=== PATIENT | female | born 1950 | race Caucasian/White ===

== ENCOUNTER 2019-03-14 21:53 | Inpatient (IN) | payer OTHER ==
[~2019-03-14] VITALS: Ht 177.8 cm; Wt 126.6 kg
[~2019-03-14 21:53] MED LIST: AUGMENTIN 875-1 EACH PO; CHOLESTYRAMINE P4 GM PO; COREG CR80 MG PO; DEXILANT60 MG PO; FIBER GUMMIES2.5 GM PO; FISH OIL 1,0001 EAC1 PO; LOVASTAT40 PO; MATZIM LA360 MG PO; MELATONIN5 M1; NORCO 5-325 TA1 EACH PO; OMEGA-31000 M1; OMEPRAZOLE40 MG PO; PRADAXA150 MG PO; SLOW RELEASE I142 M1 PO; chlorthalidone PO; slow fe
[2019-03-14 22:00] VITALS: BP 140/81
[2019-03-14] MEDS ORDERED: ELIQUIS5 MG PO (22:07)
[2019-03-14] MEDS ORDERED: OMEPRAZOLE40 MG PO (22:09)
[2019-03-14] MEDS ORDERED: RANITIDINE 150150 M1 PO (22:11)
[2019-03-14] MEDS ORDERED: LINZESS290 MCG PO (22:11)
[2019-03-14] MEDS ORDERED: TRAZODONE HCL50 MG PO (22:11)
[2019-03-14] MEDS ORDERED: MELATONIN5 M1 PO (22:12)
[2019-03-14 22:32] LABS: ABSOLUTE BASOPHILS 0.1 thou/uL (0.0-0.2); ABSOLUTE EOSINOPHILS 0.1 thou/uL (0.0-0.7); ABSOLUTE LYMPHOCYTES 1.3 thou/uL (0.8-5.3); ABSOLUTE MONOCYTES 0.5 thou/uL (0.0-1.2); ABSOLUTE NEUTROPHILS 9.9 thou/uL (1.6-8.1); EOSINOPHILS 0.9 %; HEMATOCRIT 39.8 % (37.0-47.0); HEMOGLOBIN 13.9 gm/dL (12.0-15.0); LYMPHOCYTES 10.5 %; MCH 30.7 pg (26.0-34.0); MCHC 34.8 g/dL (28.0-37.0); MCV 88.3 fL (80.0-100.0); MONOCYTES 4.1 %; MPV 8.5 fl. (7.2-11.1); NUCLEATED RBCS 0 /100WBC; PLATELET COUNT* 222 thou/uL (150-400); POLYS 83.5 %; RBC 4.51 mil/uL (4.20-5.00); WBC 11.9 thou/uL (4.0-11.0)
[2019-03-14 22:41] LABS: CALCIUM 8.8 mg/dL (8.5-10.1); CREATININE 0.9 mg/dL (0.6-1.3)
[2019-03-14 22:43] LABS: POTASSIUM 2.7 mmol/L (3.5-5.1)
[2019-03-14 22:45] LABS: ALBUMIN 3.6 g/dL (3.4-5.0); MAGNESIUM 1.6 mg/dL (1.8-2.4); TOTAL BILIRUBIN 0.4 mg/dL (<0.1-1.0); TOTAL PROTEIN 7.4 g/dL (6.4-8.2)
[2019-03-14 23:07] LABS: URINE BILIRUBIN NEGATIVE (Negative); URINE BLOOD NEGATIVE (Negative); URINE CLARITY CLEAR; URINE COLOR YELLOW; URINE GLUCOSE-RANDOM NEGATIVE (Negative); URINE KETONES TRACE (Negative); URINE LEUKOCYTES-REFLEX NEGATIVE (Negative); URINE NITRITE-REFLEX NEGATIVE (Negative); URINE PROTEIN NEGATIVE (Negative); URINE SPECIFIC GRAVITY 1.015 (1.005-1.030); URINE UROBILINOGEN 0.2 E.U./dl (0.2-1.0)
[2019-03-15 02:21] VITALS: BP 110/56
[2019-03-15 02:30] VITALS: BP 123/72
[2019-03-15 07:59] LABS: ALBUMIN 3.3 g/dL (3.4-5.0); CALCIUM 8.5 mg/dL (8.5-10.1); CREATININE 0.9 mg/dL (0.6-1.3); POTASSIUM 3.1 mmol/L (3.5-5.1); TOTAL BILIRUBIN 0.6 mg/dL (<0.1-1.0); TOTAL PROTEIN 6.5 g/dL (6.4-8.2)
[2019-03-15 08:00] VITALS: BP 131/75
--- NOTE | 2019-03-15 11:36 | EKG ---
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1950 Requested By: Caroline Macdonald Order Number: [id number] MD: Brandin Feliz Measurements Intervals [place] Rate: 96 P: [place]: QRS: -27 QRSD: 120 T: 223 QT: 377 QTc: 477 Interpretive Statements Atrial fibrillation Nonspecific intraventricular conduction delay Nonspecific repol abnormality, diffuse leads ST depression V1-V3, suggest recording posterior leads Compared to ECG 07/27/2014 17:36:54 ST (T wave) deviation still present Electronically Signed On 03-15-2019 11:36:21 CDT by Brandin Feliz [email or web address] <ELECTRONICALLY SIGNED> By: Brandin Feliz MD, [facility] 03/15/19 1136 2257 2257 Brandin Feliz MD, [facility] /EPI
--- NOTE | 2019-03-15 11:40 | EKG ---
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
[2019-03-15 12:00] VITALS: BP 121/67
[2019-03-15 16:00] VITALS: BP 116/66
[2019-03-15 16:59] LABS: ANION GAP 6 mmol/L (7-16); BUN 9 mg/dL (7-18); CALCIUM 8.6 mg/dL (8.5-10.1); CHLORIDE 102 mmol/L (98-107); CO2 32 mmol/L (21-32); CREATININE 0.8 mg/dL (0.6-1.3); GLUCOSE 87 mg/dL (70-99); POTASSIUM 3.5 mmol/L (3.5-5.1); SODIUM 140 mmol/L (136-145); TROPONIN-I LEVEL <0.06 ng/mL (<0.06)
[2019-03-15 19:49] VITALS: BP 114/66
[2019-03-16] VITALS: BP 101/70
[2019-03-16 04:00] VITALS: BP 131/86
[2019-03-16 08:00] VITALS: BP 127/74
[2019-03-16 12:00] VITALS: BP 134/95
--- NOTE | 2019-03-16 12:30 | EKG ---
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1950 Requested By: Omi Wooten Order Number: [id number] Reading MD: Brandin Feliz Measurements Intervals [place] Rate: 73 P: [place]: QRS: 57 QRSD: 114 T: QT: 434 QTc: 479 Interpretive Statements Atrial fibrillation Borderline intraventricular conduction delay Low voltage, precordial leads Abnormal T, consider ischemia, anterior leads Compared to ECG 03/15/2019 01:52:12 Low QRS voltage now present Possible ischemia still present Electronically Signed On 03-16-2019 12:30:46 CDT by Brandin Feliz [email or web address] <ELECTRONICALLY SIGNED> By: Brandin Feliz MD, [facility] 03/16/19 1230 1113 1113 Brandin Feliz MD, [facility] /EPI
[2019-03-16 16:00] VITALS: BP 130/91
--- NOTE | 2019-03-16 16:08 | 2DMMODE ---
[place] [address] 2 D/M-MODE ECHOCARDIOGRAM Name: ELIEMORGAN Room: [address] [place] [facility] [id number] Admission: 03/15/19 Attend Phys: Shree Swain, Discharge: Date of : 52 Date of Service: 03/16/19 1607 Report #: [id number] THIS REPORT FOR: //name// APPROVED REPORT Study performed: 03/16/2019 15:02:35 EXAM: Comprehensive 2D, Doppler, and color-flow Echocardiogram Patient Location: In-Patient Room #: [facility] [place] [facility] [place] Status: routine BSA: 2.41 HR: 91 bpm BP: 134/95 mmHg Rhythm: Atrial Fibrillation Other Information Study Quality: Good Indications Chest Pain 2D Dimensions IVSd: 11.56 (7-11mm) LVOT Diam: 20.35 (18-24mm) LVDd: 47.60 mm PWd: 12.07 (7-11mm) Ascending Ao: 34.45 (22-36mm) LVDs: 37.28 (25-40mm) Aortic Root: 33.93 mm Volumes Left Atrial Volume (Systole) LA ESV Index: 52.20 mL/m2 Aortic Valve AoV Peak Ari.: 1.17 m/s AO Peak Gr.: 5.51 mmHg LVOT Max P.47 mmHg AO Mean Gr.: 2.88 mmHg LVOT Mean P.83 mmHg LVOT Max V: 0.93 m/s AO V2 VTI: 22.15 cm LVOT Mean V: 0.63 m/s DIAN (VTI): 2.88 cm2 LVOT V1 VTI: 19.60 cm TDI Medial E' Ari.: 0.14 m/s Lateral E' Ari.: 0.19 m/[place] [address] 2 D/M-MODE ECHOCARDIOGRAM Name: MORGAN DELGADILLO Room: [address] IN .R.#: [id number] Admission: 03/15/19 Attend Phys: Shree Swain, Discharge: Date of : 52 Date of Service: 03/16/19 1607 Report #: [id number] Pulmonary Valve PV Peak Ari.: 0.94 m/s PV Peak Gr.: 3.51 mmHg Tricuspid Valve RAP Estimate: 5.00 mmHg TR Peak Gr.: 25.19 mmHg RVSP: 30.00 mmHg PA Pressure: 30.00 mmHg Left Ventricle The left ventricle is normal size. There is normal LV segmental wall motion. Mild concentric left ventricular hypertrophy. Left ventricular systolic function is normal. The left ventricular ejection fraction is within the normal range. LVEF is 55-60%. This study is not technically sufficient to allow evaluation of the LV diastolic function due to atrial fibrillation. Right Ventricle The right ventricle is normal size. The right ventricular systolic function is normal. Atria Left atrium is severely dilated. Right atrium is dilated. Aortic Valve The Aortic valve is sclerotic. No aortic regurgitation is present. There is no aortic valvular stenosis. Mitral Valve There is mitral annular calcification. Mild mitral regurgitation. No evidence of mitral valve stenosis. Tricuspid Valve The tricuspid valve is normal in structure. Mild tricuspid regurgitation. estimated pa pressure 35 mm Hg Pulmonic Valve The pulmonary valve is normal in structure. Trace pulmonic regurgitation. Great Vessels The aortic root is normal in size. IVC is normal in size and collapses >50% with inspiration. Pericardium There is [place] [address] 2 D/M-MODE ECHOCARDIOGRAM Name: MORGAN DELGADILLO Room: [address] IN ..#: [id number] Admission: 03/15/19 Attend Phys: Shree Swain, Discharge: Date of : 52 Date of Service: 03/16/19 1607 Report #: [id number] <Conclusion> Mild concentric left ventricular hypertrophy. LVEF is 55-60%. Left atrium is severely dilated. Mild mitral regurgitation. Mild tricuspid regurgitation. estimated pa pressure 35 mm Hg <ELECTRONICALLY SIGNED> By: Brandin Feliz MD, [facility] 03/16/19 1607 1607 06 Brandin Feliz MD, [facility] /INF
[2019-03-16 20:20] VITALS: BP 143/87
[2019-03-17 00:28] VITALS: BP 148/88
[2019-03-17 05:12] LABS: ABSOLUTE EOSINOPHILS 0.2 thou/uL (0.0-0.7); ABSOLUTE LYMPHOCYTES 2.9 thou/uL (0.8-5.3); ABSOLUTE MONOCYTES 0.3 thou/uL (0.0-1.2); ABSOLUTE NEUTROPHILS 2.9 thou/uL (1.6-8.1); BASOPHILS 0.6 %; HEMOGLOBIN 14.1 gm/dL (12.0-15.0); LYMPHOCYTES 45.6 %; MCH 30.7 pg (26.0-34.0); MCHC 34.3 g/dL (28.0-37.0); MCV 89.5 fL (80.0-100.0); MPV 8.7 fl. (7.2-11.1); NUCLEATED RBCS 0 /100WBC; PLATELET COUNT* 222 thou/uL (150-400); POLYS 45.8 %; RBC 4.58 mil/uL (4.20-5.00); RDW-CV 13.1 % (10.5-14.5); WBC 6.4 thou/uL (4.0-11.0)
[2019-03-17 05:21] VITALS: BP 118/78
[2019-03-17 05:27] LABS: CALCIUM 9.4 mg/dL (8.5-10.1); CREATININE 0.8 mg/dL (0.6-1.3); MAGNESIUM 1.8 mg/dL (1.8-2.4); POTASSIUM 4.1 mmol/L (3.5-5.1)
[2019-03-17 08:00] VITALS: BP 127/84
--- NOTE | 2019-03-17 14:05 | CARDNUC ---
[place] [address] CARDIAC NUCLEAR IMAGING REPORT Name: MORGAN DELGADILLO Room: [address] IN [facility]#: [id number] Admission: 03/15/19 Attend Phys: Shree Swain, Discharge: Date of : 52 Date of Service: 03/17/19 1405 Report #: [id number] THIS REPORT FOR: //name// APPROVED REPORT Imaging Protocol: Stress Tc-99m/Rest Tc-99m 2 days Study performed: 03/16/2019 10:35:00 Indication: Chest pain, Rapid A-Fib, N/V. Patient Location: In-Patient Room #: [facility] Stress Tech: Marika Enriquez Stress Nurse: Valerie Carrasquillo RN NM Tech:EZEQUIEL Del Cid Ht: 5 ft 10 in Wt: 280 lbs BSA: 2.41 m2 BMI: 40.17 Medical History Medical History: Angina, Atrial Fibrillation, Fatigue, Former Smoker, HTN, Hyperlipidemia, Obesity , Weakness, Hypokalemia, Hypomagnesemia, HX DVT/PE, ABN EKG. Medications: Coreg, Eliquis, Chlorthalidone, Home meds include - Lovastatin, Diltiazem HCL. Allergies: Amoxicillin Cardiac Risk Factors: Age, FHX of CAD, HTN, Hyperlipidemia, Past Smoker, A-Fib. Previous Cardiac Procedures: None Pretest Chest Pain Characteristics: No chest pain Exercise History: Indeterminate Physical Disabilities: BMI, Generalized weakness. Meds Held (24 hrs): Coreg. Resting Data Rest SPECT myocardial perfusion imaging was performed in supine position 30 minutes following the intravenous injection of 41.5 mCi of Tc-99m Sestamibi. Time of rest injection: 929 Date: 03/17/2019 The images were gated to evaluate regional wall motion and calculate left ventricular ejection fraction. Administration Route: IV Administration Site: Left AC Pharmacologic Stress Pharmacologic stress test was performed by injecting Regadenoson 0.4 [place] [address] CARDIAC NUCLEAR IMAGING REPORT Name: ELIEMORGAN Room: [address] IN [facility].#: [id number] Admission: 03/15/19 Attend Phys: Shree Swain, Discharge: Date of : 52 Date of Service: 03/17/19 1405 Report #: [id number] mg IV push over 10-15 seconds immediately followed by the intravenous injection of 41.1 mCi of Tc-99m Sestamibi. Time of stress injection: 1350 Date: 03/16/2019 Administration Route: IV Administration Site: Left AC Gated Stress SPECT was performed 40 minutes after stress injection. The images were gated to evaluate regional wall motion and calculate left ventricular ejection fraction. Prone imaging was performed. Stress Test Details Stress Test: Pharmacologic stress testing performed using 0.4 mg of regadenoson per 5 mL given IV over 10 seconds. Reason for pharmacologic stress test: Generalized weakness, BMI.. 60 mg caffeine given for dizziness, Neck pain, Tachycardia.. HR Max Heart Rate (APMHR): 153 bpm Resting HR: 79 bpm Target HR (85% APMHR): 130 bpm Max HR Achieved: 158 bpm % of APMHR: 103 Recovery HR: 117 bpm BP Resting BP: 129/93 mmHg Max BP: 214/106 mmHg Recovery BP: 116/87 mmHg ECG Resting ECG: atrial fibrillation with nonspecific ST segment depression. Stress ECG: atrial fibrillation with rapid ventricular response and nonspecific ST segment depression. ST Change: None Recovery ECG: atrial fibrillation with nonspecific ST segment depression. Recovery ST Change: None Clinical Reason for Termination: Completed protocol Stress Symptoms: Dyspnea, Lightheaded, Chest Pressure. Exercise duration: 00 min 00 sec Exercise capacity: 1.00 METs The patient tolerated Lexiscan infusion without [place] [address] CARDIAC NUCLEAR IMAGING REPORT Name: MORGAN DELGADILLO Room: [address] IN M.R.#: [id number] Admission: 03/15/19 Attend Phys: Shree Swain, Discharge: Date of : 52 Date of Service: 03/17/19 1405 Report #: [id number] Nurse Comments A 68 year old female inpatient presented with recent HX of CP, ABN EKG, Rapid A-Fib and N/V. Patient tolerated sitting Lexiscan well. Recovery required 60 Mg. of IV caffeine to alleviate lightheadedness, neck pain and continued tachycardia. Patient was escored via wheelchair by staff to Nuclear Medicine for images. Patient was stable with no complaints at that time. Stress ECG Conclusion The baseline 12-lead EKG shows atrial fibrillation with nonspecific ST segment depression. EKGs obtained during and post Lexiscan show atrial fibrillation and atrial for ablation with rapid ventricular response rate with continued nonspecific ST segment depression. Study Quality Study: Good Artifact: Mild Breast artifact Study Data At rest, the left ventricular ejection fraction was 48%.. Post stress, the left ventricular ejection was 54%.. TID = 0.95. Perfusion Resting images show mild photopenia in the mid anterior wall that resolves post stress suggesting breast attenuation artifact. No other significant fixed or reversible defects were identified. Wall Motion Global LV systolic function is fairly well-preserved with a septal wall motion abnormality of uncertain significance. Nuclear Conclusion ECG Findings: non-diagnostic Clinical Findings: negative for ischemia Nuclear Findings: negative for ischemia Exercise Capacity: not assessed Left Ventricular Function: preserved Risk Study: low Perfusion images show no defect to suggest infarct or ischemia. Global LV systolic function is fairly well-preserved. This is a low risk study. <Conclusion> The baseline 12-lead EKG shows atrial fibrillation with nonspecific [facility] [address] [place] [address] CARDIAC NUCLEAR IMAGING REPORT Name: MORGAN DELGADILLO Room: [address] IN [facility]#: [id number] Admission: 03/15/19 Attend Phys: Shree Swain, Discharge: Date of : 52 Date of Service: 03/17/19 1405 Report #: [id number] segment depression. EKGs obtained during and post Lexiscan show atrial fibrillation and atrial for ablation with rapid ventricular response rate with continued nonspecific ST segment depression. <ELECTRONICALLY SIGNED> By: Edson Osorio MD, [facility] 03/17/19 1405 1405 1405 Edson Osorio MD, [facility] /INF
[2019-03-17 14:31] VITALS: BP 118/76
[2019-03-17 14:39] VITALS: BP 118/76
== END 2019-03-17 15:00 | disposition home or self-care (01) | DRG 392 ==
LOC: M.ERS 21:53 → M.2W 03-15 00:49 → M.TBA-ER 03-15 00:49 → M.2W 03-15 02:30
PROVIDERS: Emergency Medicine; Family Medicine; Internal Medicine; ADMIT Internal Medicine
DX: A08.4 Viral intestinal infection, unspecified (principal); H33.21 Serous retinal detachment, right eye; I10 Essential (primary) hypertension; E87.6 Hypokalemia; E83.42 Hypomagnesemia; I48.0 Paroxysmal atrial fibrillation; K21.9 Gastro-esophageal reflux disease without esophagitis; R91.1 Solitary pulmonary nodule; K58.0 Irritable bowel syndrome with diarrhea; Z90.49 Acquired absence of other specified parts of digestive tract; Z79.01 Long term (current) use of anticoagulants; Z79.899 Other long term (current) drug therapy; Z88.1 Allergy status to other antibiotic agents